=== PATIENT | female | born 1950 | race Caucasian/White ===

== ENCOUNTER → 2022-03-21 09:27 | Outpatient (CLI) | payer MEDICARE, OTHER, SELFPAY ==
--- NOTE | 2022-03-21 09:29 | DI.RAD.S_ITS ---
PROCEDURE: XR KNEE RT 3V INDICATIONS: Fall TECHNIQUE: 3 views of the knee were acquired. COMPARISON: None. FINDINGS: Bones: Postsurgical changes for right knee arthroplasty. Orthopedic hardware is in expected position. No fractures or dislocations. No suspicious bony lesions. Soft tissues: No joint effusion. No suspicious soft tissue calcifications. IMPRESSION: No fracture. No acute osseous lesion. If symptoms and/or clinical suspicion for pathology persists, further assessment with repeat radiographs (7-10 days) or advanced imaging (e.g. CT, MRI or bone scan) should be considered. Dictated by: Oly Aguilar MD, PhD on 03/21/2022 at 8:56 Approved by: Oly Aguilar MD, PhD on 03/21/2022 at 8:59
== END ==
PROVIDERS: Referring Provider Student in an Organized Health Care Education/Training Program; Visit Provider Student in an Organized Health Care Education/Training Program
DX: M25.561 Pain in right knee (principal)
CPT/HCPCS: 73562

== ENCOUNTER → 2022-04-03 13:48 | Outpatient (CLI) | payer MEDICARE, OTHER, SELFPAY ==
--- NOTE | 2022-04-03 13:50 | DI.CT.S_ITS ---
PROCEDURE: CT LE RT WO CON INDICATIONS: Pain in right knee TECHNIQUE: Noncontrast 1-1.5 mm axial sections acquired from the mid-patella to the proximal tibia, with coronal and sagittal reformats. COMPARISON: [facility] [place], CR, XR KNEE 4+ VIEWS RIGHT, 04/01/2022, 16:18. FINDINGS: Image quality: Significantly degraded by metallic artifact Bones: Knee arthroplasty in place, with some subsidence of the tibial component. Patellar resurfacing. Suspected minimally displaced and comminuted fracture of the posteromedial femoral epicondyle, without interval change in position/alignment compared to radiograph from 04/01/2022 Soft tissues: Vascular calcifications. Small areas of heterotopic ossification. IMPRESSION: Suspected minimally displaced and comminuted periprosthetic fracture of the posteromedial femoral epicondyle. Evaluation is significantly limited by metallic artifact. Mild subsidence of the tibial component of the knee arthroplasty. Dictated by: Derrick Aceves M.D. on 04/03/2022 at 15:19 Approved by: Derrick Aceves M.D. on 04/03/2022 at 15:30
== END ==
PROVIDERS: Referring Provider Physician Assistant Medical; Visit Provider Physician Assistant Medical
DX: M25.561 Pain in right knee (principal); Z96.651 Presence of right artificial knee joint
CPT/HCPCS: 73700